=== PATIENT | male | born 1945 | race Asian ===

== ENCOUNTER 2016-10-30 10:49 | Emergency (ER) | payer BC, OTHER ==
[2016-10-30 11:02] VITALS: BMI 24.7
--- NOTE | 2016-10-30 11:07 | PDOC ---
History of Present Illness - General History Source: Patient Exam Limitations: No Limitations - History of Present Illness Initial Comments: 10/30/16 11:59 The patient is a 71 year old male with significant past medical history of CAD, s/p coronary bypass/aortic valve replacement, hypertension and diabetes who presents to the ED with chest pain just prior to arrival. Patient reports he was on his way to [place] when he developed a sudden onset of diffuse chest pain that radiates down both arms, hands and upper back. As per , at bedside , contacted PMD and was told to come into the ER for further evaluation. He states taking a baby aspirin every night. He denies diaphoresis, lightheadedness , SOB, palpitations, nausea, and vomiting. Upon arrival, patients blood pressure was taken during triage and noted to be 202/111. At time of evaluation , patient still has complaints of chest pain. Patient is schedule for a stress test as an outpatient. The patient denies fever, chills, cough, abdominal pain and diarrhea. Allergies: clindamycin Social History: No alcohol, tobacco, or drug use reported. Past Surgical History: s/p coronary bypass/aortic valve replacement PCP: Dr. Eloy Dennis Cardio: Dr. Hernan Farrell <Sarahy Wells - Last Filed: 10/30/16 12:00> <Linda Madrid - Last Filed: 10/30/16 13:36> <Glenny Schneider - Last Filed: 10/30/16 21:46> - General Chief Complaint: Chest Pain Stated Complaint: CHEST PAIN Time Seen by Provider: 10/30/16 11:02 Past History <Sarahy Wells - Last Filed: 10/30/16 12:00> <Linda Madrid - Last Filed: 10/30/16 13:36> - Past Medical History Cardiac Disorders: Yes (cad) Diabetes: Yes HTN: Yes - Surgical History Cardiac Surgery: Yes (Bypass surgery/ aortic valve replacement) - Psycho/Social/Smoking Cessation Hx Anxiety: No Suicidal Ideation: No Smoking Status: No Smoking History: Never smoked Have you smoked in the past 12 months: No Number of Cigarettes Smoked Daily: 0 Information on smoking cessation initiated: No Hx Alcohol Use: No Drug/Substance Use Hx: No Substance Use Type: None Hx Substance Use Treatment: No <Glenny Schneider - Last Filed: 10/30/16 21:46> - Past Medical History Allergies/Adverse Reactions: Allergies Allergy/AdvReac Type Severity Reaction Status Date / Time clindamycin Allergy Mild Rash Verified 10/30/16 10:50 Home Medications: Ambulatory Orders Pravastatin Sodium [Pravachol -] 20 mg PO HS 10/09/11 Sitagliptin Phos/Metformin HCl [Janumet 50-500 mg Tablet] 1 each PO BID Aspirin [ASA -] 81 mg PO DAILY 10/30/16 Insulin Glargine,Hum.rec.anlog [Lantus Solostar PEN (NF)] 20 units SQ HS Metoprolol Tartrate [Lopressor -] 50 mg PO DAILY 10/30/16 Review of Systems - Review of Systems Able to Perform ROS?: Yes Comments:: 10/30/16 11:59 GENERAL/CONSTITUTIONAL: No fever or chills. No weakness. HEAD, EYES, EARS, NOSE AND THROAT: No change in vision. No ear pain or discharge. No sore throat. CARDIOVASCULAR: +diffuse chest pain radiating down both arms, hands and upper back No shortness of breath. RESPIRATORY: No cough, wheezing, or hemoptysis. GASTROINTESTINAL: No nausea, vomiting, diarrhea or constipation. GENITOURINARY: No dysuria, frequency, or change in urination. MUSCULOSKELETAL: No joint or muscle swelling or pain. No neck pain. SKIN: No rash NEUROLOGIC: No headache, vertigo, loss of consciousness, or change in strength/ sensation. ENDOCRINE: No increased thirst. No abnormal weight change. HEMATOLOGIC/LYMPHATIC: No anemia, easy bleeding, or history of blood clots. ALLERGIC/IMMUNOLOGIC: No hives or skin allergy. <Sarahy Wells - Last Filed: 10/30/16 12:00> *Physical Exam - Vital Signs Last Vital Signs Temp Pulse Resp BP Pulse Ox 97.8 F 77 24 180/106 95 10/30/16 10:59 10/30/16 11:20 10/30/16 11:20 10/30/16 11:20 10/30/16 11:20 - Physical Exam Comments: 10/30/16 11:59 GENERAL: Awake, alert, and fully oriented, in mild distress and appears uncomfortable. HEAD: No signs of trauma EYES: PERRLA, EOMI, sclera anicteric, conjunctiva clear ENT: Auricles normal inspection, hearing grossly normal, nares patent, oropharynx clear without exudates. Moist mucosa NECK: Normal ROM, supple, no lymphadenopathy, JVD, or masses LUNGS: Breath sounds equal, clear to auscultation bilaterally. No wheezes, and no crackles HEART: Regular rate and rhythm, normal S1 and S2, no murmurs, rubs or gallops ABDOMEN: Soft, nontender, normoactive bowel sounds. No guarding, no rebound. No masses EXTREMITIES: Normal range of motion, no edema. No clubbing or cyanosis. No cords, erythema, or tenderness NEUROLOGICAL: Cranial nerves II through XII grossly intact. Normal speech SKIN: Warm, Dry, normal turgor, no rashes or lesions noted. <Sarahy Wells - Last Filed: 10/30/16 12:00> - Vital Signs Last Vital Signs Temp Pulse Resp BP Pulse Ox 97.8 F 78 22 166/89 100 10/30/16 10:59 10/30/16 12:43 10/30/16 12:43 10/30/16 13:30 10/30/16 12:43 <UtsLinda - Last Filed: 10/30/16 13:36> - Vital Signs Last Vital Signs Temp Pulse Resp BP Pulse Ox 97.8 F 75 18 202/111 100 10/30/16 10:59 10/30/16 10:59 10/30/16 10:59 10/30/16 10:59 10/30/16 10:59 <Glenny Schneider - Last Filed: 10/30/16 21:46> Heart Score/ECG Review - ECG Impressions Comment:: EKG read 10:57- NSR 78 bpm, LVH, LAFB, inv T aVL <Glenny Schneider - Last Filed: 10/30/16 21:46> ED Treatment Course - LABORATORY CBC & Chemistry Diagram: 10/30/16 11:10 10/30/16 11:10 - ADDITIONAL ORDERS Additional order review: Laboratory Results 10/30/16 11:10 Sodium 137 Potassium 4.2 Chloride 98 Carbon Dioxide 27 Anion Gap 12 BUN 13 Creatinine 1.0 D Creat Clearance w eGFR > 60 Random Glucose 214 H D Calcium 9.1 Total Bilirubin 0.5 D AST 17 ALT 28 Alkaline Phosphatase 66 Creatine Kinase 108 Troponin I 0.25 H D Total Protein 7.7 Albumin 4.0 10/30/16 11:10 RBC 4.94 MCV 88.0 MCHC 34.4 RDW 13.4 MPV 8.2 Neutrophils % 49.6 Lymphocytes % 37.2 D Monocytes % 8.6 Eosinophils % 3.6 Basophils % 1.0 D - Medications Given in the ED: ED Medications Discontinued Medications Generic Name Dose Route Start Last Admin Trade Name Freq PRN Reason Stop Dose Admin Nitroglycerin 0.4 mg 10/30/16 11:12 10/30/16 11:10 Nitrostat - SL 10/30/16 11:13 0.4 mg ONCE ONE Administration Nitroglycerin 0.4 mg 10/30/16 11:43 10/30/16 11:44 Nitrostat - SL 10/30/16 11:44 0.4 mg ONCE ONE Administration <Sarahy Wells - Last Filed: 10/30/16 12:00> - LABORATORY CBC & Chemistry Diagram: 10/30/16 11:10 10/30/16 11:10 - ADDITIONAL ORDERS Additional order review: Laboratory Results 10/30/16 10/30/16 10/30/16 12:59 11:10 11:10 INR 1.12 PTT (Actin FS) 35.5 H Sodium 137 Potassium 4.2 Chloride 98 Carbon Dioxide 27 Anion Gap 12 BUN 13 Creatinine 1.0 D Creat Clearance w eGFR > 60 Random Glucose 214 H D Calcium 9.1 Total Bilirubin 0.5 D AST 17 ALT 28 Alkaline Phosphatase 66 Creatine Kinase 108 Troponin I 0.25 H D Total Protein 7.7 Albumin 4.0 10/30/16 11:10 RBC 4.94 MCV 88.0 MCHC 34.4 RDW 13.4 MPV 8.2 Neutrophils % 49.6 Lymphocytes % 37.2 D Monocytes % 8.6 Eosinophils % 3.6 Basophils % 1.0 D - Medications Given in the ED: ED Medications Discontinued Medications Generic Name Dose Route Start Last Admin Trade Name Cliffordq PRN Reason Stop Dose Admin Aspirin 324 mg 10/30/16 11:43 10/30/16 11:57 Asa - PO 10/30/16 11:44 324 mg ONCE ONE Administration Heparin Sodium (Porcine) 5,000 unit 10/30/16 13:00 10/30/16 13:04 Heparin - IVPUSH 10/30/16 13:01 5,000 unit NOW ONE Administration Labetalol HCl 10 mg 10/30/16 12:39 10/30/16 12:43 Normodyne Injection - IVPUSH 10/30/16 12:40 10 mg ONCE ONE Administration Nitroglycerin 0.4 mg 10/30/16 11:12 10/30/16 11:10 Nitrostat - SL 10/30/16 11:13 0.4 mg ONCE ONE Administration Nitroglycerin 0.4 mg 10/30/16 11:43 10/30/16 11:44 Nitrostat - SL 10/30/16 11:44 0.4 mg ONCE ONE Administration <UtmenaLinda - Last Filed: 10/30/16 13:36> - LABORATORY CBC & Chemistry Diagram: 10/30/16 11:10 10/30/16 11:10 <Glenny Schneider - Last Filed: 10/30/16 21:46> Medical Decision Making - Medical Decision Making 10/30/16 11:[address] Timi Arreaga covering for Dr. Hernan Farrell (via answering service) at 11:47 Awaiting call back Case discussed with Dr. Arreaga at 11:52 <Sarahy Wells - Last Filed: 10/30/16 12:00> - Medical Decision Making 10/30/16 13:[address] Blake <[facility] - Last Filed: 10/30/16 13:36> - Medical Decision Making 10/30/16 11:53 Case d/w Dr. Arreaga, recommended CTA to r/o dissection given his prior history , as well as the presentation. Will obtain, and if negative, will start on heparin. 10/30/16 12:40 CTA reviewed, negative for dissection. Will start on labetalol drronald. Dr. Arreaga at the bedside to evaluate. 10/30/16 12:59 Based on patient's discussion with Dr. Arreaga, will transfer to [facility] to the CCU. Awaiting bed in CCU so that he may be transferred. <Glenny Schneider - Last Filed: 10/30/16 21:46> *DC/Admit/Observation/Transfer - Attestations Scribe Attestion: 10/30/16 12:00 Documentation prepared by Sarahy Wells, acting as certified medical aide for Glenny Schneider MD, MD <Sarahy Wells - Last Filed: 10/30/16 12:00> - Attestations Scribe Attestion: 10/30/16 13:36 Documentation prepared by Linda Madrid, acting as certified medical aide for Glenny Schneider MD. <Linda Madrid - Last Filed: 10/30/16 13:36> <Glenny Schneider - Last Filed: 10/30/16 21:46> Diagnosis at time of Disposition: Chest pain Qualifiers: Chest pain type: unspecified Qualified Code(s): R07.9 - Chest pain, unspecified CAD (coronary artery disease) Qualifiers: Coronary Disease-Associated Artery/Lesion type: unspecified vessel or lesion type [place] vs. transplanted heart: [place] heart Associated angina: with unstable angina Qualified Code(s): I25.110 - Atherosclerotic heart disease of [place] coronary artery with unstable angina pectoris - Discharge Dispostion Disposition: TRANSFER ACUTE CARE/OTHER HOSP Condition at time of disposition: Guarded - Referrals Referrals: Eloy Dennis [Primary Care Provider] - Buzz Paiz MD [Staff Physician] - - Patient Instructions Printed Discharge Instructions: DI for Hydrocele-Adult
[2016-10-30] MEDS ORDERED: NITROGLYCERIN SUBLINGUAL 1/150 0.4 MG TAB ONE (11:08)
[2016-10-30] MEDS ORDERED: NITROGLYCERIN SUBLINGUAL 1/150 0.4 MG TAB SL ONE ×2 (11:12→11:43)
[2016-10-30 11:21] LABS: EOSINOPHIL 3.6 % (0-4.5); MCH 30.3 pg (25.7-33.7); MCHC 34.4 g/dl (32.0-35.9); MEAN PLT VOLUME 8.2 fl (7.5-11.1); NEUTROPHILS 49.6 % (42.8-82.8); PLATELET COUNT 210 K/MM3 (134-434); RDW 13.4 % (11.9-15.9); WHITE BLOOD COUNT 6.6 K/mm3 (4.0-10.0)
[2016-10-30 11:36] LABS: INR 1.12 (0.82-1.09); PROTHROMBIN TIME (PATIENT) 12.4 SEC (9.98-11.88)
[2016-10-30 11:37] LABS: ANION GAP 12 (8-16); BILIRUBIN,TOTAL 0.5 mg/dL (0.2-1.0); CALCIUM 9.1 mg/dL (8.5-10.1); CO2 27 mmol/L (21-32); GLUCOSE,RANDOM 214 mg/dL (74-106); SGOT/AST 17 U/L (15-37); SGPT/ALT 28 U/L (12-78); TOT PROT 7.7 g/dl (6.4-8.2)
[2016-10-30 11:40] LABS: ALK PHOS 66 U/L (45-117); TROPONIN I 0.25 ng/ml (0.00-0.05)
[2016-10-30] MEDS ORDERED: ASPIRIN 81 MG CHEWABLE TABLETS PO ONE (11:43)
[2016-10-30] MEDS ORDERED: ASPIRIN 81 MG CHEWABLE TABLETS ONE (11:46)
--- NOTE | 2016-10-30 12:23 | CON.CARD ---
Consult Consult Specialty:: Cardiology Referred by:: ER Reason for Consultation:: Chest pain, HTN emergency - History of Present Illness Chief Complaint: chest pain History of Present Illness: 71 year old man with a history of HTN, HLD, DMII, CAD s/p CABG/bio AVR 2007, chronic mild dilated ascending aorta (4.0cm on serial monitoring as outpatient) comes to ER with severe chest pain. Pt. states that 2-3 days ago he wasnt feeling well but cant describe completely, thought it was a virus. today developed severe substernal chest pain, radiating to back and b/l arms, mild assoc sob. no diaphoresis, lightheadedness, dizziness, syncope, or near syncope. Pt found to have HTN urgency with BP >200/100s. Last BP in the office was 120s only on toprol. PT. seen and examined in the ER. still having mild chest discomfort. no sob currently. no diaphoresis. - History Source History Provided By: Patient, Family Member Limitations to Obtaining History: No Limitations - Past Medical History Cardio/Vascular: Yes: Aneurysm, Aortic Stenosis, CAD, HTN, Hyperlipdemia Endocrine: Yes: Diabetes Mellitus - Past Surgical History Past Surgical History: Yes: CABG, Valve Replacement - Alcohol/Substance Use Hx Alcohol Use: No - Smoking History Smoking history: Never smoked Have you smoked in the past 12 months: No Aproximately how many cigarettes per day: 0 - Social History Usual Living Arrangement: With Spouse ADL: Independent History of Recent Travel: No Home Medications - Allergies Allergies/Adverse Reactions: Allergies Allergy/AdvReac Type Severity Reaction Status Date / Time clindamycin Allergy Mild Rash Verified 10/30/16 10:50 - Home Medications Home Medications: Ambulatory Orders Pravastatin Sodium [Pravachol -] 20 mg PO HS 10/09/11 Sitagliptin Phos/Metformin HCl [Janumet 50-500 mg Tablet] 1 each PO BID Aspirin [ASA -] 81 mg PO DAILY 10/30/16 Insulin Glargine,Hum.rec.anlog [Lantus Solostar PEN (NF)] 20 units SQ HS Metoprolol Tartrate [Lopressor -] 50 mg PO DAILY 10/30/16 Family Disease History - Family Disease History Family History: Denies Review of Systems - Review of Systems Constitutional: denies: No Symptoms, Chills, Diaphoresis, Fever, Lethargy, Loss of Appetite, Malaise, Night Sweats, Unintentional Wgt. Loss, Weakness, Other Eyes: denies: No Symptoms, Blind Spots, Blurred Vision, Double Vision, Eye Pain , Floaters, Photophobia, Recent Change in Vision, Other HENT: denies: No Symptoms, Difficult Swallowing, Ear Discharge, Ear Pain, Epistaxis, Gingival Bleeding, Hearing Loss, Mouth Swelling, Nasal Congestion, Ocular Prosthesis, Throat Pain, Toothache, Ringing in Ears, Other Neck: denies: No Symptoms, Decreased ROM, Lumps, Pain on Movement, Stiffness, Swollen Glands, Tenderness, Other Cardiovascular: reports: Chest Pain, Shortness of Breath. denies: No Symptoms, Edema, Palpitations, Other Respiratory: denies: No Symptoms, Cough, Exercise Intolerance, Hemoptysis, Orthopnea, PND, Snoring, SOB, SOB on Exertion, Wheezing, Other Gastrointestinal: denies: No Symptoms, Abdominal Pain, Bloating, Constipation, Diarrhea, Dysphagia, Indigestion, Melena, Nausea, Rectal Bleeding, Vomiting, Vomiting Blood, Other Genitourinary: denies: No Symptoms, Burning, Discharge, Dysuria, Flank Pain, Frequency, Hematuria, Incontinence, Lesions, Menses, Pain, Testicular Mass, Testicular Pain, Testicular Swelling, Urgency, Vaginal Bleeding, Other Breasts: denies: No Symptoms Reported, See HPI, Breast Implants, Discharge from Nipple, Lumps, Pain, Skin Changes, Other Musculoskeletal: denies: No Symptoms, Back Pain, Crepitus, Decreased ROM, Extremity Pain, Joint Pain, Joint Swelling, Muscle Pain, Muscle Cramps, Muscle Weakness, Other Integumentary: denies: No Symptoms, Blister, Bruising, Change in Color, Eczema, Erythema, Incision, Lesions, Lump, Pallor, Pruritis, Rash, Wound, Other Neurological: denies: No Symptoms, Change in LOC, Change in Speech, Confusion, Dizziness, Headache, Incoordination, Numbness, Parasthesia, Pre-Existing Deficit , Seizure, Syncope, Tremors, Unsteady Gait, Weakness, Other Endocrine: denies: No Symptoms, Excessive Sweating, Flushing, Increased Hunger, Increased Thirst, Intolerance to Cold, Intolerance to Heat, Unexplained Weight Gain, Unexplained Weight Loss, Other Hematology/Lymphatic: denies: No Symptoms, Easily Bruised, Excessive Bleeding, Swollen Glands, Other Psychiatric: denies: No Symptoms, Altered Sleep Pattern, Anxiety, Depression, Hallucinations, Panic, Paranoia, Suicidal, Other - Risk Factors Known Risk Factors: Yes: Diabetes Mellitus, Hypercholesterolemia, Hypertension Vital Signs: Vital Signs Temperature 97.8 F 10/30/16 10:59 Pulse Rate 74 10/30/16 12:10 Respiratory Rate 22 10/30/16 12:10 Blood Pressure 171/104 10/30/16 12:10 O2 Sat by Pulse Oximetry (%) 100 10/30/16 12:10 Constitutional: Yes: Well Nourished, No Distress, Anxious Eyes: Yes: WNL, Conjunctiva Clear, EOM Intact, PERRL HENT: Yes: WNL, Atraumatic, Normocephalic Neck: Yes: WNL, Supple, Trachea Midline Respiratory: Yes: WNL, Regular, CTA Bilaterally. No: Rales, Rhonchi, Wheezes Gastrointestinal: Yes: WNL, Normal Bowel Sounds, Soft. No: Distention, Tenderness Renal/: Yes: WNL Cardiovascular: Yes: Regular Rate and Rhythm. No: Bradycardia, Tachycardia, Pulse Irregular, Gallop, Rub, Varicosities JVD: No Carotid Bruit: No PMI: Non-Displaced Heart Sounds: Yes: S1, S2. No: Split S2, S3, S4, Clicks, Gallop, Rub, Bruit Murmur: No: Systolic Murmur, Diastolic Murmur Musculoskeletal: Yes: WNL Extremities: Yes: WNL Edema: No Peripheral Pulses WNL: Yes (radial pulse 2+ b/l) Peripheral Pulses: 2+ Left Carotid, 2+ Right Carotid, 2+ Left Femoral, 2+ Right Femoral, 2+ Left Popliteal, 2+ Right Popliteal, 2+ Left Doralis Pedis, 2+ Right Dorsalis Pedis Integumentary: Yes: WNL Neurological: Yes: WNL, Alert, Oriented ...Motor Strength: WNL Psychiatric: Yes: WNL, Alert, Oriented - Other Data Labs, Other Data: CBC, BMP 10/30/16 11:10 10/30/16 11:10 INR, PTT INR 1.12 (0.82-1.09) 10/30/16 11:10 Troponin, BNP 10/30/16 11:10 Troponin I 0.25 H D Troponin, BNP 10/30/16 11:10 Troponin I 0.25 H D ekg-nsr 78bpm, LVH, LAFB, nsst, T inversion I, AVL Echo: Report Reviewed Prior Cardiac Procedures: CABG, Valve Surgery Imaging - Results Chest X-ray: Report Reviewed, Image Reviewed EKG: Report Reviewed, Image Reviewed Other: Report Reviewed, Image Reviewed Problem List - Problems (1) Chest pain Code(s): R07.9 - CHEST PAIN, UNSPECIFIED Qualifiers: Chest pain type: unspecified Qualified Code(s): R07.9 - Chest pain, unspecified (2) Aortic aneurysm Code(s): I71.9 - AORTIC ANEURYSM OF UNSPECIFIED SITE, WITHOUT RUPTURE (3) CAD (coronary artery disease) Code(s): I25.10 - ATHSCL HEART DISEASE OF [place] CORONARY ARTERY W/O ANG PCTRS Qualifiers: Coronary Disease-Associated Artery/Lesion type: unspecified vessel or lesion type [place] vs. transplanted heart: [place] heart Associated angina: with unstable angina Qualified Code(s): I25.110 - Atherosclerotic heart disease of [place] coronary artery with unstable angina pectoris (4) Hx of CABG Code(s): Z95.1 - PRESENCE OF AORTOCORONARY BYPASS GRAFT (5) S/P AVR (aortic valve replacement) Code(s): Z95.2 - PRESENCE OF PROSTHETIC HEART VALVE (6) HTN (hypertension) Code(s): I10 - ESSENTIAL (PRIMARY) HYPERTENSION (7) HLD (hyperlipidemia) Code(s): E78.5 - HYPERLIPIDEMIA, UNSPECIFIED (8) Diabetes mellitus type 2 in nonobese Code(s): E11.9 - TYPE 2 DIABETES MELLITUS WITHOUT COMPLICATIONS Assessment/Plan 71 year old man with a history of HTN, HLD, DMII, CAD s/p CABG/bio AVR 2007 comes to ER with severe chest pain. Pt. states that 2-3 days ago he wasnt feeling well but cant describe completely, thought it was a virus. today developed severe substernal chest pain, radiating to back and b/l arms, mild assoc sob. no diaphoresis, lightheadedness, dizziness, syncope, or near syncope. Pt found to have HTN urgency with BP >200/100s. Last BP in the office was 120s only on toprol. Chest pain-in setting of known CAD h/o CABG and bio AVR and known thoracic aortic aneursym -troponin slightly elevated 0.25 with normal CK -pulses equal throughout -hypertensive urgency/emergency -CTA now to rule out aortic dissection, if no dissection plan to start heparin gtt -HTN control essential, would start labetalol gtt and titrate off as tolerates -cont home ASA and statin -check serial ekgs and cardiac enzymes -depending on results of CTA may need to be transferred for possible cardiac catheterization CTA reviewed, does not appear to be a dissection heparin gtt started with bolus labetalol gtt started pts family requests [facility], will transfer for cardiac cath
[2016-10-30] MEDS ORDERED: LABETALOL HCL 5 MG/1 ML (100MG/20 ML VIAL) IVPUSH ONE (12:39)
[2016-10-30] MEDS ORDERED: LABETALOL HCL INJECTION 1,000 MG in SODIUM CHLORIDE 800 ML IV SCH (12:45)
[2016-10-30] MEDS ORDERED: HEPARIN NA (PORCINE) 5,000 UNITS/ML 1ML VIAL ONE (12:49)
[2016-10-30] MEDS ORDERED: HEPARIN INFUSION - 500 ML IVPB ONE (12:50)
[2016-10-30] MEDS ORDERED: HEPARIN NA (PORCINE) 5,000 UNITS/ML 1ML VIAL IVPUSH PRN ×2 (12:52)
[2016-10-30] MEDS ORDERED: HEPARIN - 25,000 UNIT in SODIUM CHLORIDE 495 ML IV SCH (13:00)
[2016-10-30] MEDS ORDERED: HEPARIN NA (PORCINE) 5,000 UNITS/ML 1ML VIAL IVPUSH ONE (13:00)
--- NOTE | 2016-10-30 13:28 | EKG ---
Test Reason : Blood Pressure : / mmHG Vent. Rate : 078 BPM Atrial Rate : 078 BPM P-R Int : 180 ms QRS Dur : 108 ms QT Int : 390 ms P-R-T Axes : 038 -45 075 degrees QTc Int : 444 ms NORMAL SINUS RHYTHM LEFT ANTERIOR FASCICULAR BLOCK LEFT VENTRICULAR HYPERTROPHY WITH REPOLARIZATION ABNORMALITY ABNORMAL ECG WHEN COMPARED WITH ECG OF 24-DEC-2011 17:05, NO SIGNIFICANT CHANGE WAS FOUND Confirmed by RACHEL BOB, DONALD ([id number]) on 10/30/2016 1:28:16 PM Referred By: Confirmed By:DONALD RAMOS MD
[2016-10-30] MEDS ORDERED: morphine CARPU-JECT 4 MG/1 ML DISP.SYRIN ONE (16:14)
[2016-10-30 16:22] VITALS: BP 129/70; PULSE 74; TEMP 98
[2016-10-30 17:14] LABS: TROPONIN I 1.36 ng/ml (0.00-0.05)
--- NOTE | 2016-10-31 12:48 | PN ---
Progress Note (short form) - Note Progress Note: Pt was transferred to [facility] yesterday and underwent cardiac cath today showing 95% OM1 stenosis with no CABG graft to that territory thus he underwent IMTIAZ x1 with successful revascularization. Also noted to have a 99% D1 stenosis however with a patent graft to this area thus no intervention performed, mild LAD disease, and ostial PDA disease. Interventionalist recommended if pt has recurrent angina will consider PCI of PDA. Problem List - Problems (1) Chest pain Code(s): R07.9 - CHEST PAIN, UNSPECIFIED Qualifiers: Chest pain type: unspecified Qualified Code(s): R07.9 - Chest pain, unspecified (2) Aortic aneurysm Code(s): I71.9 - AORTIC ANEURYSM OF UNSPECIFIED SITE, WITHOUT RUPTURE (3) CAD (coronary artery disease) Code(s): I25.10 - ATHSCL HEART DISEASE OF [place] CORONARY ARTERY W/O ANG PCTRS Qualifiers: Coronary Disease-Associated Artery/Lesion type: unspecified vessel or lesion type [place] vs. transplanted heart: [place] heart Associated angina: with unstable angina Qualified Code(s): I25.110 - Atherosclerotic heart disease of [place] coronary artery with unstable angina pectoris (4) Hx of CABG Code(s): Z95.1 - PRESENCE OF AORTOCORONARY BYPASS GRAFT (5) S/P AVR (aortic valve replacement) Code(s): Z95.2 - PRESENCE OF PROSTHETIC HEART VALVE (6) HTN (hypertension) Code(s): I10 - ESSENTIAL (PRIMARY) HYPERTENSION (7) HLD (hyperlipidemia) Code(s): E78.5 - HYPERLIPIDEMIA, UNSPECIFIED (8) Diabetes mellitus type 2 in nonobese Code(s): E11.9 - TYPE 2 DIABETES MELLITUS WITHOUT COMPLICATIONS
== END 2016-10-30 16:23 | disposition short-term general hospital (02) ==
LOC: JER 10:49
PROC: 3E033GC Introduction of Other Therapeutic Substance into Peripheral Vein, Percutaneous Approach (ICD-10-PCS; principal; 2016-10-30)
PROC: 3E033GC Introduction of Other Therapeutic Substance into Peripheral Vein, Percutaneous Approach (ICD-10-PCS; 2016-10-30)
PROC: 3E033GC Introduction of Other Therapeutic Substance into Peripheral Vein, Percutaneous Approach (ICD-10-PCS; 2016-10-30)
DX: I25.110 Atherosclerotic heart disease of native coronary artery with unstable angina pectoris (principal); I10 Essential (primary) hypertension; Z79.84 Long term (current) use of oral hypoglycemic drugs; E11.9 Type 2 diabetes mellitus without complications; Z79.4 Long term (current) use of insulin; I71.9 Aortic aneurysm of unspecified site, without rupture; Z95.1 Presence of aortocoronary bypass graft; Z95.2 Presence of prosthetic heart valve
CPT/HCPCS: 36415; 71010-TC; 71275-TC; 74175-TC; 80053; 82550; 84484; 85025; 85610; 85730; 93005; 93010; 96365; 96366; 96374; 96375; 99285-25; J1644

== ENCOUNTER 2020-11-12 04:34 | Day surgery (SDC) | payer OTHER ==
[2020-11-11 13:11] VITALS: BMI 22.8
[2020-11-12] MEDS ORDERED: CEFAZOLIN 1 GM/D5W 1 GM/50 ML BAG ONE (08:07)
[2020-11-12 08:26] VITALS: TEMP 98.9
[2020-11-12 08:59] VITALS: BP 111/71; PULSE 63
== END 2020-11-12 09:03 | disposition home or self-care (01) ==
LOC: JASU-ENDO 04:34
PROVIDERS: ATTEND Internal Medicine Gastroenterology
PROC: 0DJD8ZZ Inspection of Lower Intestinal Tract, Via Natural or Artificial Opening Endoscopic (ICD-10-PCS; principal; 2020-11-12 08:00)
DX: Z12.11 Encounter for screening for malignant neoplasm of colon (principal); K59.00 Constipation, unspecified; I25.10 Atherosclerotic heart disease of native coronary artery without angina pectoris; I10 Essential (primary) hypertension; Z95.1 Presence of aortocoronary bypass graft; E11.9 Type 2 diabetes mellitus without complications; Z79.4 Long term (current) use of insulin; G47.30 Sleep apnea, unspecified; Z88.1 Allergy status to other antibiotic agents; Z83.71 Family history of colonic polyps
CPT/HCPCS: 82962

== ENCOUNTER 2021-03-13 09:32 | Observation (INO) | payer OTHER ==
[2021-03-13 09:42] VITALS: BMI 22.8
[2021-03-13 10:38] LABS: BASO % 0.7 % (0-2.0); EOS % 3.6 % (0-4.5); HEMATOCRIT 41.4 % (35.4-49); HEMOGLOBIN 14.1 GM/dL (11.7-16.9); LYMPH % 20.3 % (8-40); MCH 30.4 pg (25.7-33.7); MCHC 33.9 g/dl (32.0-35.9); MEAN CELL VOLUME 89.7 fl (80-96); MEAN PLT VOLUME 7.6 fl (7.5-11.1); MONO % 8.7 % (3.8-10.2); NEUT % 66.7 % (42.8-82.8); PLATELET COUNT 275 10^3/uL (134-434); RBC 4.62 M/mm3 (4.00-5.60); RDW 13.6 % (11.9-15.9); WHITE BLOOD COUNT 6.8 K/mm3 (4.0-10.0)
[2021-03-13 10:42] LABS: INR 1.15 (0.83-1.09); PROTHROMBIN TIME (PATIENT) 13.8 SEC (9.7-13.0)
[2021-03-13 10:44] LABS: ACTIVATED PTT 29.2 SECONDS (25.2-36.5)
[2021-03-13 10:54] LABS: CHLORIDE 98 mmol/L (98-107); SODIUM 133 mmol/L (136-145)
[2021-03-13 10:56] LABS: ALBUMIN 3.5 g/dl (3.4-5.0); ANION GAP 7 MMOL/L (8-16); CALCIUM 9.1 mg/dL (8.5-10.1); CO2 27 mmol/L (21-32)
[2021-03-13 10:57] LABS: BLOOD UREA NITROGEN 17.2 mg/dL (7-18); GLUCOSE,RANDOM 202 mg/dL (74-106)
[2021-03-13 10:59] LABS: SGPT/ALT 26 U/L (13-61)
[2021-03-13 11:00] LABS: CREATININE 0.8 mg/dL (0.55-1.3); SGOT/AST 18 U/L (15-37)
[2021-03-13 11:01] LABS: BILIRUBIN,TOTAL 0.4 mg/dL (0.2-1); TOT PROT 7.1 g/dl (6.4-8.2)
[2021-03-13 11:02] LABS: ALK PHOS 69 U/L (45-117)
[2021-03-13] MEDS ORDERED: ACETAMINOPHEN INJECTION 100 ML IVPB ONE (11:15)
[2021-03-13] MEDS ORDERED: ACETAMINOPHEN 1000 MG/100 ML VIAL (NON FORMULARY) IVPB ONE (11:16)
[2021-03-13] MEDS ORDERED: ALBUTEROL SO4 HFA INHALER IH PRN (14:58)
[2021-03-13] MEDS: ASPIRIN COATED 81 MG TABLET.EC PO SCH (15:11)
[2021-03-13] MEDS ORDERED: ACETAMINOPHEN 325 MG TABLET (FP) PO PRN (15:19)
[2021-03-13] MEDS ORDERED: metFORMIN HCL 500 MG TABLET (FP) PO SCH (16:30)
[2021-03-13] MEDS: PANTOPRAZOLE 40 MG TABLET PO SCH (17:16)
[2021-03-13] MEDS: INSULIN SLIDING SCALE (NOVOLOG) 1 VIAL SQ SCH (17:16)
[2021-03-13] MEDS: POTASSIUM CHLORIDE 10 MEQ in SODIUM CHLORIDE 0.45% 1,000 ML IVPB SCH (17:18)
[2021-03-13] MEDS ORDERED: ATORVASTATIN CA 80 MG TABLET (FP) PO SCH (22:00)
[2021-03-13] MEDS ORDERED: INSULIN (LEVEMIR) 100 UNITS/ML UNITS SQ SCH (22:00)
[2021-03-14] MEDS: POTASSIUM CHLORIDE 10 MEQ in SODIUM CHLORIDE 0.45% 1,000 ML IVPB SCH ×2 (06:19→06:23)
[2021-03-14] MEDS: INSULIN SLIDING SCALE (NOVOLOG) 1 VIAL SQ SCH ×2 (06:30→11:33)
[2021-03-14] MEDS ORDERED: sitaGLIPtin PHOSPHATE 50 MG TABLET PO SCH (07:00)
[2021-03-14 07:38] VITALS: TEMP 98.4
[2021-03-14] MEDS ORDERED: PT OWN MED DRAWER 7, Y5N ONE (08:37)
[2021-03-14 09:10] LABS: EOS % 4.9 % (0-4.5); HEMATOCRIT 42.6 % (35.4-49); HEMOGLOBIN 14.3 GM/dL (11.7-16.9); LYMPH % 21.4 % (8-40); MCH 30.1 pg (25.7-33.7); MCHC 33.6 g/dl (32.0-35.9); MEAN CELL VOLUME 89.5 fl (80-96); MEAN PLT VOLUME 8.3 fl (7.5-11.1); MONO % 9.3 % (3.8-10.2); NEUT % 63.4 % (42.8-82.8); PLATELET COUNT 284 10^3/uL (134-434); RBC 4.76 M/mm3 (4.00-5.60); RDW 13.4 % (11.9-15.9); WHITE BLOOD COUNT 6.2 K/mm3 (4.0-10.0)
[2021-03-14] MEDS: PANTOPRAZOLE 40 MG TABLET PO SCH (09:25)
[2021-03-14] MEDS: ASPIRIN COATED 81 MG TABLET.EC PO SCH (09:25)
[2021-03-14 09:30] LABS: CHLORIDE 101 mmol/L (98-107); SODIUM 134 mmol/L (136-145)
[2021-03-14 09:34] LABS: ANION GAP 8 MMOL/L (8-16); BLOOD UREA NITROGEN 14.2 mg/dL (7-18); CO2 26 mmol/L (21-32)
[2021-03-14 09:35] LABS: GLUCOSE,RANDOM 106 mg/dL (74-106)
[2021-03-14 09:36] LABS: CREATININE 0.7 mg/dL (0.55-1.3)
[2021-03-14] MEDS ORDERED: CALCIUM CARBONATE 650 MG TABLET PO SCH (10:00)
[2021-03-14] MEDS ORDERED: INSULIN (LEVEMIR) 100 UNITS/ML UNITS SQ SCH (10:00)
[2021-03-14] MEDS ORDERED: CHOLECALCIFEROL (VIT D3) 1,000 UNIT (25 MCG) TABLET PO SCH (10:00)
[2021-03-14] MEDS ORDERED: CLOPIDOGREL BISULFATE 75 MG TABLET (FP) PO SCH (10:00)
[2021-03-14] MEDS ORDERED: ASCORBIC ACID 500 MG TABLET (FP) PO SCH (10:00)
[2021-03-14 11:57] VITALS: BP 115/72; PULSE 77
== END 2021-03-14 12:12 | disposition home or self-care (01) ==
LOC: JER 09:32 → JERBED 11:17 → J4S 15:39
PROVIDERS: ADMIT Internal Medicine; ATTEND Internal Medicine
PROC: 3E033NZ Introduction of Analgesics, Hypnotics, Sedatives into Peripheral Vein, Percutaneous Approach (ICD-10-PCS; principal; 2021-03-13)
PROC: 3E013VG Introduction of Insulin into Subcutaneous Tissue, Percutaneous Approach (ICD-10-PCS; 2021-03-13)
DX: Z95.1 Presence of aortocoronary bypass graft (principal); I25.810 Atherosclerosis of coronary artery bypass graft(s) without angina pectoris; I47.1 Supraventricular tachycardia; E11.9 Type 2 diabetes mellitus without complications; E78.5 Hyperlipidemia, unspecified; I11.9 Hypertensive heart disease without heart failure
CPT/HCPCS: 36415; 71045-TC-FY; 71275-TC; 80048; 80053; 82272; 82550; 82962; 84484; 85025; 85610; 85730; 93005; 93010; 93306-TC; 96372; 96374; 99285-25; C9803; G0378; J0131; Q9967; U0003; U0005

== ENCOUNTER 2023-07-07 05:04 | Day surgery (SDC) | payer OTHER ==
[2023-07-05 11:24] VITALS: BMI 22.8
[2023-07-07 09:12] VITALS: TEMP 98.2
[2023-07-07 09:44] VITALS: BP 126/62; PULSE 63; RESP 17
== END 2023-07-07 10:05 | disposition home or self-care (01) ==
LOC: JASU-ENDO 05:04
PROVIDERS: ATTEND Internal Medicine Gastroenterology
PROC: 0DBE8ZX Excision of Large Intestine, Via Natural or Artificial Opening Endoscopic, Diagnostic (ICD-10-PCS; principal; 2023-07-07 09:00)
DX: R19.7 Diarrhea, unspecified (principal); I10 Essential (primary) hypertension; E11.9 Type 2 diabetes mellitus without complications; Z79.4 Long term (current) use of insulin
CPT/HCPCS: 82962; 88305-TC